=== PATIENT | female | born 1985 | race Caucasian/White ===

== ENCOUNTER 2018-04-01 04:23 | Inpatient (IN) | payer MEDICAID ==
[2018-04-01 06:44] LABS: ADD UMIC YES; UR ASCORBIC ACID NEGATIVE (NEGATIVE); UR BACTERIA FEW /HPF (NONE SEEN); UR BILIRUBIN (Dip) NEGATIVE (NEGATIVE); UR BLOOD (Dip) 2+ mg/dL (NEGATIVE); UR CLARITY CLOUDY (CLEAR); UR COLOR RED (YELLOW); UR GLUCOSE (Dip) NEGATIVE (NEGATIVE); UR KETONES (Dip) TRACE mg/dL (NEGATIVE); UR LEUKOCYTE ESTERASE (Dip) NEGATIVE Leu/ul (NEGATIVE); UR NITRITE (Dip) POSITIVE (NEGATIVE); UR RBC > 182 /HPF (0-5); UR SPECIFIC GRAVITY (Dip) 1.009 (1.003-1.030); UR TOTAL PROTEIN (Dip) 2+ mg/dl (NEGATIVE); UR UROBILINOGEN (Dip) NEGATIVE (NEGATIVE); UR WBC > 182 /HPF (0-5)
[2018-04-01] MEDS: LACTATED RINGER'S 1,000 ML IV ×4 (06:45→23:32)
[2018-04-01 07:45] LABS: ADD MAN DIFF? NO
[2018-04-01 07:49] LABS: WHITE BLOOD COUNT 7.9 10^3/ul (4.8-10.8)
[2018-04-01 07:49] LABS: BASOPHILS % 0.1 % (0.0-2.0); EOSINOPHILS # 0.1 10^3/ul (0.0-0.5); EOSINOPHILS % 1.4 % (0.0-7.0); HEMATOCRIT 35.8 % (37.0-47.0); LYMPHOCYTES # 1.7 10^3/ul (0.8-2.9); LYMPHOCYTES % 20.9 % (15.0-51.0); MEAN CORPUSCULAR HEMOGLOBIN 31.4 pg (29.0-33.0); MEAN CORPUSCULAR HGB CONC 33.5 g/dl (32.0-37.0); MEAN CORPUSCULAR VOLUME 93.7 fl (82.0-101.0); MEAN PLATELET VOLUME 11.2 fl (7.4-10.4); MONOCYTE # 0.7 10^3/ul (0.3-0.9); MONOCYTES % 8.6 % (0.0-11.0); NEUTROPHIL # 5.4 10^3/ul (1.6-7.5); NEUTROPHILS % 68.4 % (39.0-77.0); PLATELET COUNT 278 10^3/UL (140-415); RED BLOOD COUNT 3.82 10^6/ul (4.20-5.40); RED CELL DISTRIBUTION WIDTH 13.5 % (11.5-14.5)
[2018-04-01 08:06] LABS: RUPTURE FETAL MEMBRANES POSITIVE (NEGATIVE)
[2018-04-01 08:10] LABS: INR 0.86; PROTIME 11.8 Sec (11.9-14.9); PT RATIO 0.9
[2018-04-01 08:11] LABS: PARTIAL THROMBOPLASTIN TIME 30.3 Sec (25.0-35.0)
[2018-04-01 08:22] LABS: ALANINE AMINOTRANSFERASE 20 IU/L (13-69); ALBUMIN 3.2 g/dl (3.3-4.9); ALKALINE PHOSPHATASE 145 IU/L (42-121); ANION GAP 15 (8-16); ASPARTATE AMINO TRANSFERASE 19 IU/L (15-46); BILIRUBIN,INDIRECT 0.2 mg/dl (0-1.1); BILIRUBIN,TOTAL 0.2 mg/dl (0.2-1.3); BLOOD UREA NITROGEN 9 mg/dl (7-20); CALCIUM 9.3 mg/dl (8.4-10.2); CARBON DIOXIDE 21 mmol/L (21-31); CHLORIDE 109 mmol/L (97-110); CREATININE 0.38 mg/dl (0.44-1.00); GLUCOSE 146 mg/dl (70-220); POTASSIUM 3.8 mmol/L (3.5-5.1); SODIUM 141 mmol/L (135-144); TOTAL PROTEIN 6.4 g/dl (6.1-8.1)
[2018-04-01] MEDS: TERBUTALINE 1 MG/ML INJ SC (08:52)
[2018-04-01] MEDS: BETAMET NA PHOS/AC(6 MG/ML) 5ML INJ IM (08:52)
[2018-04-01] MEDS: PRENATAL VITAMIN PO (08:55)
[2018-04-01] MEDS: DOCUSATE SODIUM 100 MG CAP PO (09:02)
[2018-04-02] MEDS: LACTATED RINGER'S 1,000 ML IV ×2 (07:38→16:18)
[2018-04-02] MEDS: FERROUS SULFATE (EC) 325 MG TAB PO (08:44)
[2018-04-02] MEDS: CALCIUM CARBONATE 1.25 GM TAB PO (08:44)
[2018-04-02] MEDS: DOCUSATE SODIUM 100 MG CAP PO (08:44)
[2018-04-02] MEDS: PRENATAL VITAMIN PO (08:44)
[2018-04-02] MEDS ORDERED: OXYTOCIN 30 UNITS/LR 500 ML IV (09:30)
[2018-04-02] MEDS ORDERED: CARBOPROST 250 MCG INJ IM (09:30)
[2018-04-02] MEDS ORDERED: METHYLERGONOVINE 0.2 MG INJ IM (09:30)
[2018-04-02] MEDS ORDERED: IBUPROFEN 600 MG TAB PO (09:30)
[2018-04-02] MEDS: BETAMET NA PHOS/AC(6 MG/ML) 5ML INJ IM (09:37)
[2018-04-02] MEDS ORDERED: OXYCODONE/ACETAMINOPHEN (10/325) TAB PO (10:00)
[2018-04-02] MEDS: MISOPROSTOL 25 MCG CAPSULE PO ×4 (10:02→22:34)
[2018-04-02] MEDS: AMPICILLIN 2 GM/NS (PMX) 100 ML IV (10:02)
[2018-04-02 10:25] LABS: HEPATITIS B SURFACE ANTIGEN NEGATIVE (NEGATIVE)
[2018-04-02] MEDS: AMPICILLIN 1 GM/NS (PMX) 50 ML IV ×3 (14:35→22:33)
[2018-04-03] MEDS: LACTATED RINGER'S 1,000 ML IV ×6 (01:13→21:40)
[2018-04-03] MEDS: AMPICILLIN 1 GM/NS (PMX) 50 ML IV ×6 (02:28→21:46)
[2018-04-03] MEDS: MISOPROSTOL 25 MCG CAPSULE PO ×3 (02:28→22:11)
[2018-04-03 09:11] LABS: ADD UMIC YES; UR ASCORBIC ACID NEGATIVE (NEGATIVE); UR BILIRUBIN (Dip) NEGATIVE (NEGATIVE); UR BLOOD (Dip) 1+ mg/dL (NEGATIVE); UR CLARITY CLEAR (CLEAR); UR COLOR COLORLESS (YELLOW); UR GLUCOSE (Dip) NEGATIVE (NEGATIVE); UR KETONES (Dip) NEGATIVE (NEGATIVE); UR LEUKOCYTE ESTERASE (Dip) NEGATIVE Leu/ul (NEGATIVE); UR NITRITE (Dip) NEGATIVE (NEGATIVE); UR RBC 0 /HPF (0-5); UR SPECIFIC GRAVITY (Dip) 1.004 (1.003-1.030); UR TOTAL PROTEIN (Dip) NEGATIVE (NEGATIVE); UR UROBILINOGEN (Dip) NEGATIVE (NEGATIVE); UR WBC 0 /HPF (0-5)
[2018-04-03 09:24] LABS: ADD MAN DIFF? NO
[2018-04-03 09:32] LABS: BASOPHILS % 0.2 % (0.0-2.0); EOSINOPHILS % 0.1 % (0.0-7.0); HEMATOCRIT 34.7 % (37.0-47.0); HEMOGLOBIN 11.7 g/dl (12.0-16.0); LYMPHOCYTES # 1.8 10^3/ul (0.8-2.9); LYMPHOCYTES % 16.7 % (15.0-51.0); MEAN CORPUSCULAR HEMOGLOBIN 31.7 pg (29.0-33.0); MEAN CORPUSCULAR HGB CONC 33.7 g/dl (32.0-37.0); MONOCYTE # 1.1 10^3/ul (0.3-0.9); MONOCYTES % 9.7 % (0.0-11.0); NEUTROPHIL # 7.7 10^3/ul (1.6-7.5); NEUTROPHILS % 69.9 % (39.0-77.0); NUCLEATED RED BLOOD CELLS # 0.1 10^3/ul (0.0-0.0); NUCLEATED RED BLOOD CELLS% 0.5 /100WBC (0.0-0.0); PLATELET COUNT 257 10^3/UL (140-415); RED BLOOD COUNT 3.69 10^6/ul (4.20-5.40); RED CELL DISTRIBUTION WIDTH 13.5 % (11.5-14.5)
[2018-04-03 09:55] LABS: URIC ACID 3.5 mg/dl (3.1-7.9)
[2018-04-03] MEDS: FERROUS SULFATE (EC) 325 MG TAB PO (10:01)
[2018-04-03] MEDS: DOCUSATE SODIUM 100 MG CAP PO (10:01)
[2018-04-03] MEDS: PRENATAL VITAMIN PO (10:01)
[2018-04-03] MEDS: CALCIUM CARBONATE 1.25 GM TAB PO (10:16)
[2018-04-04] MEDS: AMPICILLIN 1 GM/NS (PMX) 50 ML IV ×6 (01:38→21:20)
[2018-04-04] MEDS: OXYTOCIN 30 UNITS/LR 500 ML IV (02:22)
[2018-04-04] MEDS: LACTATED RINGER'S 1,000 ML IV ×3 (05:01→22:20)
[2018-04-04] MEDS: CALCIUM CARBONATE 1.25 GM TAB PO (10:04)
[2018-04-04] MEDS: FERROUS SULFATE (EC) 325 MG TAB PO (10:04)
[2018-04-04] MEDS: PRENATAL VITAMIN PO (10:04)
[2018-04-04] MEDS: DOCUSATE SODIUM 100 MG CAP PO (10:04)
[2018-04-04] MEDS ORDERED: FENTAnyl 2MCG/ML-ROPIV 0.2% 100 ML (21:50)
[2018-04-04] MEDS ORDERED: NALOXONE (0.4 MG/ML) INJ IV (22:30)
[2018-04-04] MEDS ORDERED: ONDANSETRON 4 MG INJ IV (22:30)
[2018-04-04] MEDS ORDERED: DIPHENHYDRAMINE 50 MG INJ IV (22:30)
[2018-04-04] MEDS: MAGNESIUM SULFATE 20 GM/500 ML 500 ML IV (22:45)
[2018-04-04] MEDS ORDERED: LABETALOL HCL 20MG INJ (23:26)
[2018-04-05] MEDS: AMPICILLIN 1 GM/NS (PMX) 50 ML IV ×4 (01:26→13:27)
[2018-04-05] MEDS: MAGNESIUM SULFATE 4 GM/100 ML 100 ML IVPB (04:49)
[2018-04-05] MEDS: FENTAnyl 2MCG/ML-ROPIV 0.2% 100 ML BAG EPI ×2 (04:52→10:14)
[2018-04-05] MEDS: LACTATED RINGER'S 1,000 ML IV ×4 (04:53→19:57)
[2018-04-05 07:28] LABS: MAGNESIUM 4.8 mg/dl (1.7-2.5)
[2018-04-05] MEDS: MAGNESIUM SULFATE 20 GM/500 ML 500 ML IV ×2 (07:42→16:51)
[2018-04-05] MEDS: LABETALOL HCL 20MG INJ IV ×2 (11:35→17:55)
[2018-04-05 13:26] LABS: MAGNESIUM 4.8 mg/dl (1.7-2.5)
[2018-04-05] MEDS: OXYTOCIN 30 UNITS/LR 500 ML IV ×3 (15:32→21:01)
[2018-04-05] MEDS: MISOPROSTOL 200 MCG TAB PR (16:08)
[2018-04-05] MEDS: LIDOCAINE 1% (MPF) 30 ML INJ INJ (16:55)
[2018-04-05] MEDS ORDERED: LABETALOL HCL 20MG INJ IV (17:30)
[2018-04-05 18:33] LABS: MAGNESIUM 4.6 mg/dl (1.7-2.5)
[2018-04-05] MEDS ORDERED: MISOPROSTOL 200 MCG TAB PR (22:30)
[2018-04-05] MEDS ORDERED: CARBOPROST 250 MCG INJ IM (22:30)
[2018-04-05] MEDS ORDERED: OXYTOCIN 30 UNITS/LR 500 ML IV (22:30)
[2018-04-05] MEDS ORDERED: ACETAMINOPHEN 325 MG TAB PO (22:30)
[2018-04-06 01:20] LABS: MAGNESIUM 4.7 mg/dl (1.7-2.5)
[2018-04-06] MEDS: WITCH HAZEL/GLYCERIN PAD PR (01:22)
[2018-04-06] MEDS: BENZOCAINE 20% 56 ML SPRAY TOP (01:22)
[2018-04-06] MEDS: MAGNESIUM SULFATE 20 GM/500 ML 500 ML IV ×2 (03:00→10:04)
[2018-04-06] MEDS: OXYTOCIN 30 UNITS/LR 500 ML IV (03:01)
[2018-04-06 06:40] LABS: ADD MAN DIFF? NO
[2018-04-06 06:43] LABS: WHITE BLOOD COUNT 16.8 10^3/ul (4.8-10.8)
[2018-04-06 06:43] LABS: ABNORMAL IP MESSAGE 1; BASOPHILS % 0.2 % (0.0-2.0); EOSINOPHILS # 0.1 10^3/ul (0.0-0.5); EOSINOPHILS % 0.5 % (0.0-7.0); HEMATOCRIT 33.2 % (37.0-47.0); HEMOGLOBIN 11.4 g/dl (12.0-16.0); LYMPHOCYTES # 1.8 10^3/ul (0.8-2.9); LYMPHOCYTES % 10.9 % (15.0-51.0); MEAN CORPUSCULAR HEMOGLOBIN 31.6 pg (29.0-33.0); MEAN CORPUSCULAR HGB CONC 34.3 g/dl (32.0-37.0); MEAN PLATELET VOLUME 10.8 fl (7.4-10.4); MONOCYTE # 1.5 10^3/ul (0.3-0.9); NEUTROPHIL # 13.3 10^3/ul (1.6-7.5); NEUTROPHILS % 78.7 % (39.0-77.0); NUCLEATED RED BLOOD CELLS% 0.1 /100WBC (0.0-0.0); PLATELET COUNT 248 10^3/UL (140-415); RED BLOOD COUNT 3.61 10^6/ul (4.20-5.40); RED CELL DISTRIBUTION WIDTH 13.7 % (11.5-14.5)
[2018-04-06 07:04] LABS: MAGNESIUM 4.6 mg/dl (1.7-2.5)
[2018-04-06] MEDS: PRENATAL VITAMIN PO (10:02)
[2018-04-06] MEDS: SENNA/DOCUSATE NA (8.6MG/50MG) TAB PO ×2 (10:02→21:18)
[2018-04-06] MEDS: LACTATED RINGER'S 1,000 ML IV ×2 (10:07→22:37)
[2018-04-06] MEDS: LABETALOL 100 MG TAB PO ×2 (12:44→21:18)
[2018-04-06] MEDS: LANOLIN 7 GM TUBE TOP (17:37)
[2018-04-07] MEDS: LANOLIN 7 GM TUBE TOP (02:52)
[2018-04-07] MEDS: LABETALOL 100 MG TAB PO (10:01)
[2018-04-07] MEDS: SENNA/DOCUSATE NA (8.6MG/50MG) TAB PO (10:01)
[2018-04-07] MEDS: PRENATAL VITAMIN PO (10:01)
[2018-04-07 14:56] LABS: RAPID PLASMA REAGIN NONREACTIVE (NR)
== END 2018-04-07 18:35 | disposition home or self-care (01) | DRG 775 ==
LOC: OBT 04:23 → L-D 04-02 09:28 → PP1 04-05 21:18 → L-D 04:25 → OBT 06:28 → L-D 06:29
PROC: 10E0XZZ Delivery of Products of Conception, External Approach (ICD-10-PCS; principal; 2018-04-05)
PROC: 0HQ9XZZ Repair Perineum Skin, External Approach (ICD-10-PCS; 2018-04-05)
PROC: 3E033VJ Introduction of Other Hormone into Peripheral Vein, Percutaneous Approach (ICD-10-PCS; 2018-04-05)
DX: O60.14X0 Preterm labor third trimester with preterm delivery third trimester, not applicable or unspecified (principal); O70.0 First degree perineal laceration during delivery; O13.4 Gestational [pregnancy-induced] hypertension without significant proteinuria, complicating childbirth; Z3A.35 35 weeks gestation of pregnancy; Z37.0 Single live birth
CPT/HCPCS: 62319; 76818; 80053; 81001; 83735; 84112; 84560; 85025; 85610; 85730; 86592; 86850; 86900; 86901; 87086; 87340